=== PATIENT | female | born 1985 | race African-American/Black ===

== ENCOUNTER 2017-07-06 15:53 | Emergency (ER) | payer OTHER ==
[~2017-07-06] VITALS: Ht 162.6 cm; Wt 120.4 kg
[~2017-07-06 15:53] MED LIST: CLEOCIN300 MG PO; NOHOMEMEDS; TYLENOL W/ CODE10 ML PO
[2017-07-06] MEDS ORDERED: FLEXERIL10 MG PO (17:11)
[2017-07-06] MEDS ORDERED: MOTRIN800 MG PO (17:11)
[2017-07-06] MEDS ORDERED: PREDNISONE20 MG PO (17:11)
[2017-07-06] MEDS ORDERED: PERCOCET 5/31 TABLET PO (17:20)
[2017-07-06 17:41] VITALS: BP 112/78
== END 2017-07-06 17:47 | disposition home or self-care (01) ==
LOC: EME 15:53
DX: M94.0 Chondrocostal junction syndrome [Tietze] (principal); M79.605 Pain in left leg; V49.40XA Driver injured in collision with unspecified motor vehicles in traffic accident, initial encounter; Y92.410 Unspecified street and highway as the place of occurrence of the external cause
CPT/HCPCS: 71046; 93005; 99281; 99285